=== PATIENT | female | born 1945 | race Caucasian/White ===

== ENCOUNTER → 2017-03-07 | Outpatient (CLI) | payer OTHER ==
[~2017-03-07] MED LIST: ANTIVERT25 MG PO; AZO STANDARD95 MG PO; DIAZEPAM 2MG TAB2 MG OR; ETODOLAC 400 M400 M1 PO; FLEXERIL PO; HEADACHE RELIE1 EAC4 PO; IBUPROFEN 200200 M1 PO; LEVOXYL50 MCG PO; LISINOPRIL20 MG PO; LISINOPRIL5 MG PO; MAGOX 400400 MG PO; MOTION RELIEF25 MG PO; OMEPRAZOLE 20 M20 M1 PO; OXYBUTYNIN 5 MG5 M1 PO; PREMARIN0.625 MG PO; TRAMADOL 50 MG50 MG PO; ZPAK PO
== END ==
LOC: RAD 09:08
DX: Z12.31 Encounter for screening mammogram for malignant neoplasm of breast (principal)

== ENCOUNTER → 2017-05-01 | Outpatient (CLI) | payer OTHER | LOC: SLEEPLAB 17:32 | DX: G47.33 Obstructive sleep apnea (adult) (pediatric) (principal) ==

== ENCOUNTER → 2017-06-26 | Outpatient (CLI) | payer OTHER | LOC: ULTRA 16:12 | DX: M79.604 Pain in right leg (principal); M79.89 Other specified soft tissue disorders ==

== ENCOUNTER 2017-10-07 09:36 | Emergency (ER) | payer OTHER ==
[~2017-10-07] VITALS: Ht 154.9 cm; Wt 77.1 kg
--- NOTE | ~2017-10-07 | EKG ---
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
[2017-10-07] MEDS ORDERED: ANTIVERT25 MG PO (10:50)
[2017-10-07 11:32] VITALS: BP 166/84
== END 2017-10-07 11:35 | disposition home or self-care (01) ==
LOC: ER 09:36
DX: R42 Dizziness and giddiness (principal); J32.9 Chronic sinusitis, unspecified; H61.21 Impacted cerumen, right ear; Z87.891 Personal history of nicotine dependence; Z88.5 Allergy status to narcotic agent; Z88.1 Allergy status to other antibiotic agents; Z88.0 Allergy status to penicillin

== ENCOUNTER → 2018-05-31 | Outpatient (CLI) | payer OTHER | LOC: RAD 07:24 | DX: M47.812 Spondylosis without myelopathy or radiculopathy, cervical region (principal) ==

== ENCOUNTER → 2018-08-22 | Outpatient (CLI) | payer OTHER ==
[~2018-08-22] MED LIST changes: +B-COMPLEX-VITA1 EACH PO; +GYNODIOL0.5 MG PO; +OFLOXACIN5 ML OPHTHALMIC; +PREDNISONE 20 M20 MG PO; +VITAMIN D1000 UNI2 PO
== END ==
LOC: RAD 15:05
DX: Z12.31 Encounter for screening mammogram for malignant neoplasm of breast (principal)

== ENCOUNTER → 2018-12-19 | Outpatient (CLI) | payer OTHER ==
[2018-12-19 15:32] LABS: ABSOLUTE NEUTROPHILS 4.8 thou/uL (1.4-8.2); BASOPHILS 1.2 % (0.0-2.0); EOSINOPHILS 2.6 % (0.0-3.0); HEMATOCRIT 41.2 % (37.0-47.0); HEMOGLOBIN 13.9 gm/dL (12.0-15.0); LYMPHOCYTES 34.2 % (24.0-44.0); MCH 30.7 pg (26.0-34.0); MCHC 33.8 g/dL (28.0-37.0); MCV 90.9 fL (80.0-100.0); PLATELET COUNT 318 thou/uL (150-400); RBC 4.53 mil/uL (4.20-5.00); RDW 14.2 % (10.5-14.5); WBC 8.8 thou/uL (4.0-11.0)
[2018-12-19 15:52] LABS: ALBUMIN 3.5 g/dL (3.4-5.0); CALCIUM 9.2 mg/dL (8.5-10.1); CREATININE 0.8 mg/dL (0.6-1.0); POTASSIUM 4.8 mmol/L (3.5-5.1); TOTAL BILIRUBIN 0.3 mg/dL (<0.1-1.0); TOTAL PROTEIN 6.8 g/dL (6.4-8.2)
== END ==
LOC: CAT 15:01 → LABMALL 15:01
PROVIDERS: Nurse Practitioner
DX: S00.03XA Contusion of scalp, initial encounter (principal); I67.82 Cerebral ischemia; J32.3 Chronic sphenoidal sinusitis; G31.9 Degenerative disease of nervous system, unspecified; R10.9 Unspecified abdominal pain; X58.XXXA Exposure to other specified factors, initial encounter; Y93.89 Activity, other specified; Y92.89 Other specified places as the place of occurrence of the external cause; Y99.8 Other external cause status

== ENCOUNTER → 2019-01-08 | Outpatient (CLI) | payer OTHER ==
[2019-01-08 08:53] LABS: CREATININE 0.9 mg/dL (0.6-1.0)
== END ==
LOC: CAT 08:18
PROVIDERS: Nurse Practitioner
DX: K44.9 Diaphragmatic hernia without obstruction or gangrene (principal); K76.9 Liver disease, unspecified; R19.5 Other fecal abnormalities; R92.2 Inconclusive mammogram; Z90.710 Acquired absence of both cervix and uterus

== ENCOUNTER → 2019-01-15 | Outpatient (CLI) | payer OTHER | LOC: ULTRA 01:05 | DX: K76.89 Other specified diseases of liver (principal); N63.20 Unspecified lump in the left breast, unspecified quadrant ==

== ENCOUNTER → 2019-06-11 | Outpatient (CLI) | payer OTHER ==
[~2019-06-11] VITALS: Ht 154.9 cm; Wt 79.4 kg
[~2019-06-11] MED LIST changes: +8 HOUR C500 MG PO; +CALCIUM500 MG PO; +PREMARIN0.45 MG PO
[2019-06-11 08:22] VITALS: BP 151/83
--- NOTE | 2019-06-11 08:40 | NUR ---
Pain Clinic Assessment: 1. History of Osteoarthritis: Not Applicable History of Rheumatoid Arthritis: Not Applicable 2. Height: 5 ft. 1 in. 154.9 cm. Weight: 175.0 lb. oz. 79.380 kg. Patient's BMI: 33.1 3. Vital Signs: BP: 151/83 Pulse: 68 Resp: 16 Temp: 02 Sat: 96 ECG Mon: 4. Pain Intensity: 7 5. Fall Risk: Dizziness: N Needs help standing or walking: N Fallen in the last 3 months: N Fall risk comments: 6. Patient on Blood Thinner: None 7. History of Hypertension: Y 8. Opioid Therapy greater than 6 weeks: N Opiate Contract Signed: 9. Risk Assessment Tool Provided: 0-LOW 10. Functional Assessment Tool: 11. Recreational Drug Use: Never Drug Type: Tobacco Use: Never Smoker Tobacco Type: Amount or Packs/day: How Many Years: Alcohol Use: No Frequency: Quant:
--- NOTE | 2019-06-24 09:14 | HPC ---
[facility] [place] [address] PAIN MANAGEMENT CONSULTATION Name: RYANMICHAELCATRINA Glenda Room #: REG ASHOK Wyatt#: [id number] Admission: 06/11/19 ������������������ Attend Phys: Samir Wallace DO Discharge: ������������������ Date of : 49 Report #: [id number] THIS REPORT FOR: //name// CC: Samir Braun Yaneth Kade WRIGHT DATE OF SERVICE: 06/11/2019 CHIEF COMPLAINT: Low back pain, bilateral lower extremity pain with paresthesias. HISTORY OF PRESENT ILLNESS: As you know, the patient is a 73-year-old female who was seen by [facility] per the request of her primary care team for evaluation for neck pain and upper extremity pain with paresthesias. She states from a pain standpoint, she is doing much better from her neck symptoms, but is now experiencing increasing back pain, bilateral lower extremity pain. She apparently sought evaluation with Podiatry who indicated that they felt her symptoms were not podiatric in origin, but are likely due to changes in the lumbar spine. She was subsequently referred to our clinic to discuss options for treatment for suspected lumbar radiculopathy. She comes to us with no imaging studies to further evaluate. She indicates today pain level around 7/10, exacerbated with sitting for any length of time, walking, sleeping, certain shoes. She describes the pain as periodic, burning, shooting, burning, electrical, numbness, and tingling. ALLERGIES: PENICILLIN, CODEINE, and HYDROCODONE. CURRENT MEDICATIONS: Ofloxacin, cyclobenzaprine, etodolac, cholecalciferol, vitamin B complex, estradiol, lisinopril, diazepam, omeprazole, and levothyroxine. SOCIAL HISTORY: The patient denies tobacco, alcohol, IV, or illicit drug use. 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 She is working, not receiving workmen's compensation, unaccompanied today. IMAGING: No new imaging available. PHYSICAL EXAMINATION: VITAL SIGNS: Blood pressure 151/83, pulse 68, respiratory rate 16 and unlabored. The patient is 96% on room air. Height 5 feet 1 inch tall, weight 175 pounds, BMI calculated 33.1. GENERAL: Well-developed, well-nourished, well-hydrated exogenously obese 73-year-old female appearing stated age, pain is rated around 7/10. HEENT: Normocephalic, atraumatic. Pupils equal, round, reactive to light. EXTREMITIES: Show no clubbing, no cyanosis, and no edema. [facility] [address] [place] [address] PAIN MANAGEMENT CONSULTATION Name: CATRINA BATISTA Room #: REG [facility].#: [id number] Admission: 06/11/19 ������������������ Attend Phys: Samir Wallace DO Discharge: ������������������ Date of : 49 Report #: [id number] MUSCULOSKELETAL: Lower extremity strength appears equal and symmetrical 5/5. She is intact to light touch from L1 through S2 dermatomes. Seated straight leg raising negative. Supine straight leg raising mildly positive at approximately 60 degree angle on the right, negative left. Ankle clonus negative. Babinski is negative. Muscle bulk and tone equal and symmetrical in lower extremities. The patient is able to toe walk, heel walk. Lumbar provocation testing is met with mild increase in overall pain. ASSESSMENT: 1. Possible lumbar radiculopathy. 2. Lumbosacral spondylosis with possible radicular symptoms. 3. Chronic low back pain. PLAN: 1. The patient has been referred back to our clinic for ongoing low back pain, bilateral lower extremity pain, believed not to be podiatric in origin. The patient apparently has been ruled out as a Podiatry problem by her prep manager at the recent visit of 05/28/2019. It was felt the patient's symptoms are related to lumbar radiculopathy. She comes to us today without any imaging studies to further evaluate the lumbar spine. I would recommend initially evaluated in the lumbar to determine if there is some pathology that would be amenable to treatment or whether or not surgical options may be necessary. We did consider the possibility of an EMG if the findings of the MRI are not specific. We will consider this option. The patient is amenable to undergo MRI of the lumbar spine as part of the initial evaluation. Once the findings are available, we can discuss the treatment options if it is believed her symptoms are radicular in origin. 2. We will send the patient for MRI lumbar spine without contrast. We have taken the liberty of writing for this imaging study, will make this available to the patient's treating physician. Once we have this MRI, we will review the findings. If there is noted pathology that might be amenable to an epidural injection, this would be a consideration at our followup visit. 3. The patient was provided samples of Lyrica 75 mg dose. She is to take 1 tab p.o. at bedtime approximately one hour prior to bedtime. This will provide baseline neuropathic pain control as we continue the workup for suspected lumbar radiculopathy. I have given the patient enough samples to titrate through the next couple of weeks as we continue the evaluation. 4. We will see the patient back in followup visit once the MRI has been completed, we will discuss options for treatment at that appointment including the possibility of undergoing an epidural injection. ��������������������������������������������� <ELECTRONICALLY SIGNED> ���������������������������������������� By: Samir Wallace DO ��������������������������������������������� 06/24/19 0914 1718 0942 Samir Wallace DO /nt
== END ==
LOC: PAIN 06:46
DX: M47.816 Spondylosis without myelopathy or radiculopathy, lumbar region (principal); G89.29 Other chronic pain; Z79.899 Other long term (current) drug therapy; Z88.8 Allergy status to other drugs, medicaments and biological substances; Z88.0 Allergy status to penicillin

== ENCOUNTER → 2019-06-12 | Outpatient (CLI) | payer OTHER | LOC: MRI 10:37 | DX: M43.16 Spondylolisthesis, lumbar region (principal); M51.16 Intervertebral disc disorders with radiculopathy, lumbar region; M47.814 Spondylosis without myelopathy or radiculopathy, thoracic region; M51.24 Other intervertebral disc displacement, thoracic region; M12.88 Other specific arthropathies, not elsewhere classified, other specified site; M51.25 Other intervertebral disc displacement, thoracolumbar region; M46.06 Spinal enthesopathy, lumbar region; M48.061 Spinal stenosis, lumbar region without neurogenic claudication ==

== ENCOUNTER → 2019-07-02 | Outpatient (CLI) | payer OTHER ==
[~2019-07-02] VITALS: Ht 154.9 cm; Wt 79.5 kg
[~2019-07-02] MED LIST changes: +DIAZEPAM2 MG PO; +HYOSCYAMINE0.125 MG PO
[2019-07-02 08:45] VITALS: BP 174/93
--- NOTE | 2019-07-02 09:01 | NUR ---
Pain Clinic Assessment: 1. History of Osteoarthritis: Not Applicable History of Rheumatoid Arthritis: Not Applicable 2. Height: 5 ft. 1 in. 154.9 cm. Weight: 175.2 lb. oz. 79.470 kg. Patient's BMI: 33.1 3. Vital Signs: BP: 174/93 Pulse: 65 Resp: 18 Temp: 02 Sat: 99 ECG Mon: 4. Pain Intensity: 6 5. Fall Risk: Dizziness: Y Needs help standing or walking: N Fallen in the last 3 months: N Fall risk comments: 6. Patient on Blood Thinner: None 7. History of Hypertension: Y 8. Opioid Therapy greater than 6 weeks: N Opiate Contract Signed: 9. Risk Assessment Tool Provided: 0-LOW 10. Functional Assessment Tool: 11. Recreational Drug Use: Never Drug Type: Tobacco Use: Never Smoker Tobacco Type: Amount or Packs/day: How Many Years: Alcohol Use: No Frequency: Quant:
--- NOTE | 2019-07-08 09:09 | HPC ---
[facility] [place] [address] PAIN MANAGEMENT CONSULTATION Name: CATRINA BATISTA Room #: REG ASHOK Wyatt#: [id number] Admission: 07/02/19 Attend Phys: Samir Wallace DO Discharge: Date of : 49 Report #: [id number] THIS REPORT FOR: //name// CC: Samir WRIGHT DATE OF SERVICE: 07/02/2019 CHIEF COMPLAINT: Low back pain, bilateral lower extremity pain with paresthesias. HISTORY OF PRESENT ILLNESS: As you know, patient is a 73-year-old female who returns today in followup visit to undergo lumbar epidural injection under fluoroscopic guidance. We had contacted the patient by phone after she underwent MRI of the lumbar spine to advise her of the findings therein. There was noted moderate thecal sac stenosis at L3-L4 with effacement of the L3 nerve roots corresponding to the patient's ongoing pain. She returns today in followup visit to undergo a lumbar epidural injection. She is placing pain score 6/10. She states her pain is periodic with baseline chronic burning, shooting and electrical like sensations. She states pain is exacerbated with walking, sleeping, sitting too long and certain pairs of shoes. She denies any injury or trauma. She returns today to undergo a lumbar epidural injection under fluoroscopic guidance to address lumbar radicular symptoms. ALLERGIES: PENICILLIN, CODEINE, HYDROCODONE. CURRENT MEDICATIONS: See chart. SOCIAL HISTORY: The patient denies tobacco, alcohol, IV or illicit drug use. She is working, not receiving workmen's compensation, unaccompanied today. IMAGING: No new imaging available. PHYSICAL EXAMINATION: VITAL SIGNS: Blood pressure 174/93, pulse 65, respiratory rate 18 and unlabored. The patient is 99% on room air. Height 5 feet 1 inch tall, weight 175.2 pounds, BMI calculated 33.1. GENERAL: Well-developed, well-nourished, well-hydrated 73-year-old female appearing stated age, pain is rated at 6/10. HEENT: Normocephalic, atraumatic. Pupils equal, round, reactive to light. EXTREMITIES: Show no clubbing, no cyanosis, and no edema. MUSCULOSKELETAL: Lower extremity strength equal and symmetrical 5/5, intact to light touch from L1 through S2 dermatomes. Seated straight leg raising negative. Supine straight leg raising remains mildly positive at about 60-65 degree angle on the right, negative left. Ankle clonus negative. [facility] is [facility] [address] [place] [address] PAIN MANAGEMENT CONSULTATION Name: CATRINA BATISTA Room #: REG [facility]#: [id number] Admission: 07/02/19 Attend Phys: Samir Wallace DO Discharge: Date of : 49 Report #: [id number]. ASSESSMENT: 1. Symptomatic lumbar radiculopathy. 2. Spinal stenosis of the lumbar spine. 3. Displacement of lumbar intervertebral disk with radiculopathy. 4. Lumbosacral spondylosis with radiculopathy. 5. Lumbar degeneration. 6. Chronic intractable pain. PLAN: 1. The patient returns today in followup visit to undergo lumbar epidural injection under fluoroscopic guidance. As indicated in the history of present illness, patient and I had a conversation over the phone about the findings of the MRI from her lumbar region as she was delayed in return due to third constitution party payer restrictions. The patient is prepared to undergo the lumbar epidural injection today. She is advised of the risks and benefits. These risks include but are not necessarily limited to bleeding, bruising, infection, worsening pain, no relief of pain, also risk of temporary or permanent muscle weakness, temporary or permanent nerve damage, possible paralysis and . The patient states understood and wished to proceed. 2. No medication changes made at today's visit. The patient will continue current medical therapy as prior prescribed. 3. We will see the patient back in followup visit on an as needed basis for next in the series of lumbar epidural injections. PROCEDURE NOTE DESCRIPTION OF PROCEDURE: L3-L4 lumbar epidural injection under fluoroscopic guidance. After obtaining written consent, the patient was taken back to fluoroscopy suite, placed in prone position with pillow under abdomen to decrease lumbar lordosis. Skin overlying lumbosacral area then prepped and draped in aseptic fashion. The L3-L4 vertebral interspace identified by AP fluoroscopy. Skin and subcutaneous tissue overlying target site of injection anesthetized with 3 mL of 1% lidocaine. A 20-gauge 3-1/2 inch Tuohy needle advanced under fluoroscopic guidance towards the epidural space using a parasagittal approach. Epidural space identified using loss of resistance to air technique. After negative aspiration for heme or cerebrospinal fluid, 1 mL of Omnipaque injected. Lumbar epidurogram confirmed using both AP and lateral fluoroscopy. After negative aspiration for heme or cerebrospinal fluid, 5 mL of a solution containing 2 mL 40 mg per mL, 80 mg total triamcinolone, 3 mL lidocaine 1% injected slowly. Needle retracted penitentiary, flushed with 1 mL of 1% lidocaine and removed. Sterile bandage placed [address] [address] PAIN MANAGEMENT CONSULTATION Name: CATRINA BATISTA Room #: RUBINA EllisMiguel#: [id number] Admission: 07/02/19 Attend Phys: Samir Wallace DO Discharge: Date of : 49 Report #: [id number] over injection site. No new motor deficits present in lower extremity following procedure. The patient tolerated procedure well, carefully escorted to recovery room in stable condition. No apparent complications. After meeting discharge criteria, patient discharged home. <ELECTRONICALLY SIGNED> By: Samir Wallace DO 07/08/19 0909 1020 0157 Samir Wallace DO /nt
== END | disposition home or self-care (01) ==
LOC: PAIN 06-18 06:45
DX: M51.16 Intervertebral disc disorders with radiculopathy, lumbar region (principal); M47.27 Other spondylosis with radiculopathy, lumbosacral region; M48.061 Spinal stenosis, lumbar region without neurogenic claudication; G89.29 Other chronic pain; Z88.0 Allergy status to penicillin; Z88.8 Allergy status to other drugs, medicaments and biological substances; Z79.899 Other long term (current) drug therapy

== ENCOUNTER → 2019-08-28 | Outpatient (CLI) | payer OTHER | LOC: RAD 10:34 | DX: Z12.31 Encounter for screening mammogram for malignant neoplasm of breast (principal) ==

== ENCOUNTER 2020-03-29 09:08 | Emergency (ER) | payer OTHER ==
[~2020-03-29] VITALS: Ht 152.4 cm; Wt 77.1 kg
[2020-03-29 09:10] VITALS: BP 135/84
[2020-03-29] MEDS ORDERED: ERYTHROMYCIN E3.5 G3 OPHTHALMIC (09:55)
[2020-03-29] MEDS ORDERED: IBUPROFEN 800800 MG PO (09:55)
== END 2020-03-29 10:16 | disposition home or self-care (01) ==
LOC: ER 09:08
DX: S05.02XA Injury of conjunctiva and corneal abrasion without foreign body, left eye, initial encounter (principal); Z86.69 Personal history of other diseases of the nervous system and sense organs; Z90.49 Acquired absence of other specified parts of digestive tract; Z98.890 Other specified postprocedural states; Z79.899 Other long term (current) drug therapy; Z88.5 Allergy status to narcotic agent; Z88.0 Allergy status to penicillin; Z87.891 Personal history of nicotine dependence; W22.09XA Striking against other stationary object, initial encounter; Y93.E9 Activity, other interior property and clothing maintenance; Y92.098 Other place in other non-institutional residence as the place of occurrence of the external cause; Y99.8 Other external cause status

== ENCOUNTER → 2020-07-28 | Outpatient (CLI) | payer OTHER ==
[~2020-07-28] MED LIST changes: +ALUMINUM POTAS PO; +DULERA 200 MCG/13 GM INH; +ERYTHROMYCIN E3.5 G3 OPHTHALMIC; +IBUPROFEN 800800 MG PO; +LODINE400 M1 PO; +OMEPRAZOLE40 MG PO
== END ==
LOC: SJCVCIMAG 13:22
PROVIDERS: ATTEND Internal Medicine Cardiovascular Disease
DX: I87.2 Venous insufficiency (chronic) (peripheral) (principal); Z87.891 Personal history of nicotine dependence

== ENCOUNTER → 2020-08-04 | Outpatient (CLI) | payer OTHER ==
[~2020-08-04] VITALS: Ht 154.9 cm; Wt 78.0 kg
[2020-08-04 12:17] VITALS: BP 173/67; BP 198/88
[2020-08-04 12:28] LABS: HEMATOCRIT 42.4 % (37.0-47.0); MCH 30.4 pg (26.0-34.0); MCHC 32.9 g/dL (28.0-37.0); MCV 92.2 fL (80.0-100.0); RBC 4.6 mil/uL (4.20-5.00); RDW 13.8 % (10.5-14.5); WBC 6.6 thou/uL (4.0-11.0)
[2020-08-04 12:39] LABS: CALCIUM 8.4 mg/dL (8.5-10.1); CREATININE 0.6 mg/dL (0.6-1.0); POTASSIUM 4.8 mmol/L (3.5-5.1)
== END | disposition home or self-care (01) ==
LOC: CATH 06:33
PROVIDERS: ATTEND Nuclear Medicine Nuclear Cardiology
DX: I87.1 Compression of vein (principal); I87.323 Chronic venous hypertension (idiopathic) with inflammation of bilateral lower extremity; R22.43 Localized swelling, mass and lump, lower limb, bilateral; I10 Essential (primary) hypertension; J45.909 Unspecified asthma, uncomplicated; G47.33 Obstructive sleep apnea (adult) (pediatric); K21.9 Gastro-esophageal reflux disease without esophagitis; Z98.890 Other specified postprocedural states; Z79.899 Other long term (current) drug therapy; Z90.49 Acquired absence of other specified parts of digestive tract; Z98.42 Cataract extraction status, left eye; Z98.41 Cataract extraction status, right eye; Z87.891 Personal history of nicotine dependence; Z88.0 Allergy status to penicillin; Z88.8 Allergy status to other drugs, medicaments and biological substances

== ENCOUNTER → 2020-08-25 | Outpatient (CLI) | payer OTHER ==
[~2020-08-25] VITALS: Ht 154.9 cm; Wt 78.0 kg
[2020-08-25 12:20] VITALS: BP 143/59
== END | disposition home or self-care (01) ==
LOC: CATH 08:14
PROVIDERS: ATTEND Nuclear Medicine Nuclear Cardiology
DX: I87.322 Chronic venous hypertension (idiopathic) with inflammation of left lower extremity (principal); R22.42 Localized swelling, mass and lump, left lower limb; M79.605 Pain in left leg; I10 Essential (primary) hypertension; I73.9 Peripheral vascular disease, unspecified; K21.9 Gastro-esophageal reflux disease without esophagitis; J45.909 Unspecified asthma, uncomplicated; Z98.890 Other specified postprocedural states; Z79.899 Other long term (current) drug therapy; Z98.41 Cataract extraction status, right eye; Z96.651 Presence of right artificial knee joint; Z98.42 Cataract extraction status, left eye; Z90.49 Acquired absence of other specified parts of digestive tract; Z87.891 Personal history of nicotine dependence; Z88.0 Allergy status to penicillin; Z88.8 Allergy status to other drugs, medicaments and biological substances

== ENCOUNTER → 2020-08-31 | Outpatient (CLI) | payer OTHER | LOC: RAD 14:32 | PROVIDERS: ATTEND Nurse Practitioner | DX: Z12.31 Encounter for screening mammogram for malignant neoplasm of breast (principal) ==

== ENCOUNTER → 2020-09-07 | Outpatient (CLI) | payer OTHER | LOC: ULTRA 07:44 | PROVIDERS: ATTEND Nurse Practitioner | DX: N60.01 Solitary cyst of right breast (principal); N60.02 Solitary cyst of left breast; R92.8 Other abnormal and inconclusive findings on diagnostic imaging of breast ==

== ENCOUNTER 2020-11-15 07:31 | Emergency (ER) | payer OTHER ==
[~2020-11-15] VITALS: Ht 152.4 cm; Wt 77.1 kg
--- NOTE | 2020-11-15 10:12 | EKG ---
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 : 1945 Requested By: Rogelio Benavidez Order Number: [id number] MD: Lee Arriaga Measurements Intervals [place] Rate: 75 P: -11 AR: 221 QRS: -17 QRSD: 131 T: -6 QT: 404 QTc: 452 Interpretive Statements Sinus rhythm Prolonged AR interval Right bundle branch block Compared to ECG 10/07/2017 10:09:00 Right bundle-branch block now present Electronically Signed On 11-15-2020 10:12:29 CATERING AND EVENTS MANAGER by Lee Arriaga [email or web address] <ELECTRONICALLY SIGNED> By: Lee Arriaga MD, [facility] 11/15/20 1012 0948 09 Lee Arriaga MD, FACC /EPI
[2020-11-15] MEDS ORDERED: ZPAK PO (11:08)
[2020-11-15] MEDS ORDERED: PREDNISONE 20 M20 M1 PO (11:08)
[2020-11-15 11:28] VITALS: BP 176/80
== END 2020-11-15 11:29 | disposition home or self-care (01) ==
LOC: ER 07:31
DX: J20.9 Acute bronchitis, unspecified (principal); J45.909 Unspecified asthma, uncomplicated; K21.9 Gastro-esophageal reflux disease without esophagitis; I10 Essential (primary) hypertension; Z79.899 Other long term (current) drug therapy; Z87.891 Personal history of nicotine dependence; Z88.0 Allergy status to penicillin; Z88.5 Allergy status to narcotic agent

== ENCOUNTER → 2021-02-23 | Outpatient (CLI) | payer OTHER ==
[~2021-02-23] MED LIST changes: +PREDNISONE 20 M20 M1 PO
== END ==
LOC: BC 14:01
PROVIDERS: ATTEND Nurse Practitioner
DX: R92.1 Mammographic calcification found on diagnostic imaging of breast (principal); N63.20 Unspecified lump in the left breast, unspecified quadrant; N63.10 Unspecified lump in the right breast, unspecified quadrant; R92.8 Other abnormal and inconclusive findings on diagnostic imaging of breast

== ENCOUNTER → 2021-05-04 | Outpatient (CLI) | payer OTHER | LOC: MRI 08:20 | PROVIDERS: ATTEND Nurse Practitioner | DX: M51.16 Intervertebral disc disorders with radiculopathy, lumbar region (principal); M43.26 Fusion of spine, lumbar region; M47.26 Other spondylosis with radiculopathy, lumbar region; M48.061 Spinal stenosis, lumbar region without neurogenic claudication; M43.16 Spondylolisthesis, lumbar region ==

== ENCOUNTER → 2021-05-10 | Outpatient (CLI) | payer OTHER ==
[~2021-05-10] VITALS: Ht 154.9 cm; Wt 78.7 kg
[~2021-05-10] MED LIST changes: +VENLAFAXINE H37.5 MG PO
--- NOTE | ~2021-05-10 | HPC ---
[facility] [place] [address] PAIN MANAGEMENT CONSULTATION Name: CATRINA BATISTA Room #: REG ASHOK Edmundo#: [id number] Admission: 05/10/21 Attend Phys: Samir Wallace DO Discharge: Date of : 49 Report #: [id number] THIS REPORT FOR: cc: Yaneth Braun DNP, Mary E. DNP Johnson, James E. DO ~ DOC #: [id number] cc: ADRIANA Marie DO DATE OF SERVICE: 05/10/2021 REFERRING: Yaneth Braun, nurse practitioner CHIEF COMPLAINT: Low back pain and left lower extremity pain with paresthesias. HISTORY OF PRESENT ILLNESS: As you know, the patient is a 75-year-old female who has been referred back to our service with increasing back pain and left lower extremity pain with paresthesias. We last saw the patient in our clinic on 07/02/2019 where she underwent a lumbar epidural injection under fluoroscopic guidance. This apparently provided excellent benefit until her symptoms reoccurred. She denies injury or trauma. She states pain begins in low back, radiates down the left leg to the foot. She describes the pain as chronic in nature, sharp, shooting, numbness, tingling, intermittent exacerbations. She places current pain score 6/10. She states walking, climbing stairs and lying down at night exacerbates symptoms. Massage therapy, pressure and prednisone treatment has improved her pain slightly. The patient recently underwent an MRI of the lumbar spine, which shows significant changes at the L3-4 level, just above the patient's fusion, and she was referred to our clinic to discuss interventional treatment. ALLERGIES: PENICILLIN, CODEINE AND HYDROCODONE. CURRENT MEDICATIONS: Venlafaxine 37.5 mg once a day, Dulera inhaled twice a day, omeprazole 40 mg per day, diazepam 2 mg p.o. at bedtime, estradiol 0.5 mg once a day, lisinopril 20 mg per day, levothyroxine 50 mcg per day. SOCIAL HISTORY: The patient continues to smoke, reports 13-wvxg-[id number] of 1 pack a day smoking. Denies IV or illicit drug use. Denies any chronic alcohol use. She is working, not receiving Workmen's Compensation, unaccompanied today. IMAGING: MRI of the lumbar spine obtained 05/04/2021 shows mild degenerative changes within the thoracic spine. No central canal or neural foraminal stenosis. L1-2 shows mild facet arthropathy. No central canal or neural foraminal stenosis. L2-3, mild facet arthropathy. No central canal or neural foraminal stenosis. L3-4 shows grade 1 anterolisthesis of L3 with moderate degenerative changes. Mild facet arthropathy bilaterally. Moderate bilateral [address] [address] PAIN MANAGEMENT CONSULTATION Name: CATRINA BATISTA Room #: REG CLI Edmundo#: [id number] Admission: 05/10/21 Attend Phys: Samir Wallace DO Discharge: Date of : 49 Report #: [id number] broad-based disk bulge with [id number]-bt-[id number] central canal stenosis. Canal now measures 7 mm, severe narrowing of the lateral recess bilaterally, moderate bilateral neural foraminal narrowing. L4-5 shows previous spinal fusion and L4 laminectomy. No significant disk bulge or central canal stenosis. There is, however, moderate facet arthropathy and rdzfiklz-ox-qjrqbz spinal stenosis, more superiorly behind the L4 vertebral body. L5-S1 shows moderate degenerative changes, moderate facet arthropathy bilaterally. Mild disk bulge. No central canal or neural foraminal stenosis. PHYSICAL EXAMINATION: VITAL SIGNS: Blood pressure 168/82, pulse 58, respiratory rate 18 and unlabored. The patient 100% on room air. Height 5 feet 1 inch tall, weight 173.4 pounds, BMI calculated 32.8. GENERAL: Well-developed, well-nourished, well-hydrated 75-year-old female, appearing stated age. Pain is rated today at 6/10. HEENT: Normocephalic, atraumatic. Pupils equal, round and responsive to light. Extraocular muscles are intact. Sclerae nonicteric without injection. Cranial nerves 2-12 grossly intact. Speech fluent. The patient deemed a good historian. EXTREMITIES: Show no clubbing, no cyanosis and no edema. MUSCULOSKELETAL: Lower extremity strength is symmetrical, 5/5. Slight giveaway strength noted with hip flexion on the left when compared to the right due to pain generation. Muscle bulk and tone is equal and symmetrical in lower extremities. Deep tendon reflexes are symmetrical at patella and Achilles. Ankle clonus negative. Babinski is negative. Seated straight leg raising positive on the left. Supine straight leg raising positive on left. IRA test is negative. Modified Gaenslen's positive for axial back pain. Ankle clonus negative. Babinski is negative. ASSESSMENT: 1. Symptomatic lumbar radiculopathy. 2. Severe lateral recess stenosis of the lumbar spine. 3. Severe central canal stenosis of the lumbar spine. 4. Lumbosacral spondylosis with radiculopathy. 5. Neural foraminal stenosis of lumbar spine. 6. Displacement of lumbar intervertebral disk with radiculopathy. 7. Facet arthropathy of lumbar spine. 8. Chronic intractable pain. PLAN: 1. Based on today's physical exam, history the patient has provided, the description the patient uses in regards to pain and the distribution of symptoms she is experiencing, symptoms upon the likely source of the patient's pain is due to the findings at the L3-4 level. We have discussed with the patient the changes in her MRI based on the data obtained on 05/04/2021 when compared to the imaging of 06/12/2019. There has been a definitive change at the level above [facility] [address] [place] [address] PAIN MANAGEMENT CONSULTATION Name: CATRINA BATISTA Room #: REG [facility].#: [id number] Admission: 05/10/21 Attend Phys: Samir Wallace DO Discharge: Date of : 49 Report #: [id number] the fusion. There continues to be fairly stable findings at the L4-5 level and L5-S1 level. We discussed with the patient the findings today and then correlated those symptoms to her current pain. After reviewing the imaging study and her physical exam findings, we then discussed treatment options. Following was discussed with the patient today. We discussed physical therapy, stretching exercises and core strengthening as a treatment approach. We discussed medication management with suggestions of treatment to add neuropathic medication such as amitriptyline, nortriptyline, Cymbalta, Lyrica or gabapentin. We discussed lumbar epidural injections under fluoroscopic guidance and ultimately surgical decompression at the L3-4 level. After reviewing the risks and benefits of all the proposed treatment options, the patient chose to begin with a lumbar epidural injection under fluoroscopic guidance as she has just completed a Workstreamerrol Dosepak with minimal benefit. 2. The patient was advised due to third republican payer restrictions, authorization would have to be obtained before the patient could undergo a lumbar epidural injection. Authorization could take anywhere from 24-72 hours, we will begin that process immediately. Once we have this authorization, we will have the patient return to undergo a lumbar epidural injection under fluoroscopic guidance to address lumbar radicular symptoms. 3. No medication changes were made at today's visit. We recommend the patient continue current medication therapy. We are hopeful we can have this approval to have the patient undergo the epidural injection quickly and thus we do not need to initiate medication management at this visit. 4. We will see the patient back for a followup visit once we have authorization for her to undergo a lumbar epidural injection under fluoroscopic guidance at the L3-4 level. We wish to thank nurse practitioner, Yaneth Braun, for the opportunity to see this patient in consultation. We will keep you apprised of her response to treatment as we address lumbar radicular symptoms. Again, we wish to thank you for the opportunity to see this patient in consultation. DO AFIA Lopez/MARLA/DELLA By: 0803 13 Samir Wallace DO /nt
[2021-05-10 08:09] VITALS: BP 168/82
--- NOTE | 2021-05-10 08:28 | NUR ---
Pain Clinic Assessment: 1. History of Osteoarthritis: Not Applicable History of Rheumatoid Arthritis: Not Applicable 2. Height: 5 ft. 1 in. 154.9 cm. Weight: 173.4 lb. oz. 78.654 kg. Patient's BMI: 32.8 3. Vital Signs: BP: 168/82 Pulse: 58 Resp: 18 Temp: 02 Sat: 100 ECG Mon: 4. Pain Intensity: 6 5. Fall Risk: Dizziness: N Needs help standing or walking: N Fallen in the last 3 months: N Fall risk comments: 6. Patient on Blood Thinner: None 7. History of Hypertension: Y 8. Opioid Therapy greater than 6 weeks: N Opiate Contract Signed: 9. Risk Assessment Tool Provided: 0-LOW 10. Functional Assessment Tool: 11. Recreational Drug Use: Never Drug Type: Tobacco Use: Former Smoker Tobacco Type: Cigarettes Amount or Packs/day: 1 How Many Years: 20 Alcohol Use: No Frequency: Quant:
== END ==
LOC: PAIN
PROVIDERS: ATTEND Anesthesiology Pain Medicine
DX: M47.26 Other spondylosis with radiculopathy, lumbar region (principal); M48.061 Spinal stenosis, lumbar region without neurogenic claudication; M47.27 Other spondylosis with radiculopathy, lumbosacral region; M51.16 Intervertebral disc disorders with radiculopathy, lumbar region; G89.4 Chronic pain syndrome; Z79.891 Long term (current) use of opiate analgesic; Z79.899 Other long term (current) drug therapy; Z88.0 Allergy status to penicillin; Z88.5 Allergy status to narcotic agent

== ENCOUNTER → 2021-05-18 | Outpatient (CLI) | payer OTHER ==
[~2021-05-18] VITALS: Ht 154.9 cm; Wt 75.6 kg
--- NOTE | ~2021-05-18 | HPC ---
[address] [address] PAIN MANAGEMENT CONSULTATION Name: CATRINA BATISTA Room #: REG ASHOK Wyatt#: [id number] Admission: 05/18/21 Attend Phys: Samir Wallace DO Discharge: Date of : 49 Report #: [id number] THIS REPORT FOR: cc: Yaneth Braun DNP, Mary E. DNP Johnson, James E. DO ~ DOC #: [id number] cc: ADRIANA Marie DO DATE OF SERVICE: 05/18/2021 CHIEF COMPLAINT: Low back pain, bilateral lower extremity pain with paresthesias, left greater than right. HISTORY OF PRESENT ILLNESS: As you know, the patient is a 75-year-old female referred to our service for increasing back pain, mainly left lower extremity pain with paresthesias, intermittent right lower extremity pain with paresthesias. She underwent recent imaging which shows progressively worsening central canal stenosis at the L3-L4 level and continued severe central canal stenosis at the L4-L5 level despite instrumented decompression. We are seeing minimal changes at the L5-S1 level. She was referred back to our clinic to undergo interventional treatments to address ongoing symptoms. We saw the patient in consultation on 05/10/2021. She was made today's appointment 05/18/2021 to undergo lumbar epidural injection as we had to have authorization for the patient to undergo the procedure. We have received those authorizations yesterday and she was made an appointment today. She has had no changes in medical history since her last visit. ALLERGIES: PENICILLIN, CODEINE, HYDROCODONE. CURRENT MEDICATIONS: Venlafaxine, Dulera, omeprazole, diazepam, estradiol, lisinopril, levothyroxine. SOCIAL HISTORY: The patient continues to smoke, reports a 53-yiox-vfdh history of one day a pack smoking. Denies IV or illicit drug use. Denies any chronic alcohol use. She is working, not receiving workmen's compensation, unaccompanied today. IMAGING: No new imaging since 05/04/2021. PHYSICAL EXAMINATION: GENERAL: Well-developed, well-nourished, well-hydrated 75-year-old female appearing stated age, pain is rated at a level of 6/10. HEENT: Normocephalic, atraumatic. Pupils are round and responsive. She is deemed a good historian. She is wearing a mask in compliance with COVID-19 regulations. [address] [address] PAIN MANAGEMENT CONSULTATION Name: CATRINA BATISTA Room #: REG CLI [facility]#: [id number] Admission: 05/18/21 Attend Phys: Samir Wallace DO Discharge: Date of : 49 Report #: [id number] EXTREMITIES: Show no clubbing, no cyanosis and no edema. MUSCULOSKELETAL: Lower extremity strength is symmetrical 5/5. Slight giveaway strength noted again today with hip flexion on the left. Pain is generated with this maneuver. Seated straight leg raising positive on the left. Supine straight leg raising positive on the left. Gait is antalgic. ASSESSMENT: 1. Symptomatic lumbar radiculopathy. 2. 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 3. Severe central canal stenosis of lumbar spine. 4. Lumbosacral spondylosis with radiculopathy. 5. Neural foraminal stenosis of lumbar spine. 6. Displacement of lumbar intervertebral disk with radiculopathy. 7. Facet arthropathy, lumbar spine. 8. Failed lumbar spine surgery. 9. Chronic intractable pain. PLAN: 1. The patient returns today in followup visit having received authorization to undergo lumbar epidural injection under fluoroscopic guidance. She has been advised of the risks and the benefits of this procedure. These risks include but are not necessarily limited to bleeding, bruising, infection, worsening pain, no relief of pain, also risk of temporary or permanent, muscle weakness, temporary or permanent nerve damage, possible paralysis, and . The patient states understood and wished to proceed. 2. No medication changes made at today's visit. The patient will continue current medical therapy as prior prescribed. 3. We plan to see the patient back in followup visit on an as needed basis for the next in the series of lumbar epidural injections. PROCEDURE NOTE DESCRIPTION OF PROCEDURE: Lumbar epidural steroid injection under fluoroscopic guidance. After obtaining written consent, the patient was taken back to fluoroscopy suite, placed in prone position with pillow under abdomen to decrease lumbar lordosis. Skin overlying lumbosacral area prepped and draped in aseptic fashion. Lumbar intervertebral spaces were identified by AP fluoroscopy. Skin and subcutaneous tissue overlying target site injection anesthetized with 3 mL 1% lidocaine. A 20 gauge 3-1/2 inch Tuohy needle advanced under fluoroscopic guidance towards the epidural space using a parasagittal approach. Epidural space identified using loss of resistance to air technique. After negative aspiration for heme or cerebrospinal fluid, 1 mL of Omnipaque injected. Lumbar epidurogram was [facility] [address] [place] [address] PAIN MANAGEMENT CONSULTATION Name: CATRINA BATISTA [id number] Admission: 05/18/21 Attend Phys: Samir Wallace DO Discharge: Date of : 47 Report #: [id number] confirmed using both AP and lateral fluoroscopy. After negative aspiration for heme or cerebrospinal fluid, 5 mL solution containing 2 mL 40 mg per mL 80 mg total triamcinolone along with 3 mL of lidocaine, 1% injected slowly. Needle retracted [facility], flushed with 1 mL of 1% lidocaine, then removed. Sterile bandage placed over injection site. No new motor deficits present in the lower extremities, following procedure. The patient tolerated the procedure well, carefully escorted to recovery room in stable condition. No apparent complications. After meeting discharge criteria, the patient discharged home. Samir Wallace DO JEJ/DOV By: [id number] Samir Wallace DO /nt
[2021-05-18 08:14] VITALS: BP 155/88
--- NOTE | 2021-05-18 08:24 | NUR ---
Pain Clinic Assessment: 1. History of Osteoarthritis: Not Applicable History of Rheumatoid Arthritis: Not Applicable 2. Height: 5 ft. 1 in. 154.9 cm. Weight: 166.6 lb. oz. 75.569 kg. Patient's BMI: 31.5 3. Vital Signs: BP: 155/88 Pulse: 63 Resp: 16 Temp: 02 Sat: 99 ECG Mon: 4. Pain Intensity: 6 TO 7 5. Fall Risk: Dizziness: N Needs help standing or walking: N Fallen in the last 3 months: N Fall risk comments: 6. Patient on Blood Thinner: None 7. History of Hypertension: Y 8. Opioid Therapy greater than 6 weeks: N Opiate Contract Signed: 9. Risk Assessment Tool Provided: 0-LOW 10. Functional Assessment Tool: 11. Recreational Drug Use: Never Drug Type: Tobacco Use: Former Smoker Tobacco Type: Amount or Packs/day: How Many Years: Alcohol Use: No Frequency: Quant:
== END | disposition home or self-care (01) ==
LOC: PAIN 06:54
PROVIDERS: ATTEND Anesthesiology Pain Medicine
DX: M51.16 Intervertebral disc disorders with radiculopathy, lumbar region (principal); M48.061 Spinal stenosis, lumbar region without neurogenic claudication; M47.27 Other spondylosis with radiculopathy, lumbosacral region; M47.26 Other spondylosis with radiculopathy, lumbar region; M96.1 Postlaminectomy syndrome, not elsewhere classified; G89.29 Other chronic pain; Z98.890 Other specified postprocedural states; Z79.899 Other long term (current) drug therapy; Z87.891 Personal history of nicotine dependence

== ENCOUNTER → 2021-05-20 | Outpatient (CLI) | payer OTHER | LOC: SJCVCIMAG 07:44 | PROVIDERS: ATTEND Nuclear Medicine Nuclear Cardiology | DX: I70.203 Unspecified atherosclerosis of native arteries of extremities, bilateral legs (principal); M79.662 Pain in left lower leg ==

== ENCOUNTER → 2021-06-02 | Outpatient (CLI) | payer OTHER | LOC: SJCVCIMAG 07:58 | PROVIDERS: ATTEND Nuclear Medicine Nuclear Cardiology | DX: I70.203 Unspecified atherosclerosis of native arteries of extremities, bilateral legs (principal); M79.661 Pain in right lower leg; M79.662 Pain in left lower leg ==

== ENCOUNTER → 2021-06-15 | Outpatient (CLI) | payer OTHER ==
[~2021-06-15] VITALS: Ht 154.9 cm; Wt 76.7 kg
[~2021-06-15] MED LIST changes: +NEURONTIN 300M300 M2 PO
[2021-06-15 08:21] VITALS: BP 155/92
--- NOTE | 2021-06-15 08:26 | NUR ---
Pain Clinic Assessment: 1. History of Osteoarthritis: Not Applicable History of Rheumatoid Arthritis: Not Applicable 2. Height: 5 ft. 1 in. 154.9 cm. Weight: 169.2 lb. oz. 76.749 kg. Patient's BMI: 32.0 3. Vital Signs: BP: 155/92 Pulse: 109 Resp: 16 Temp: 02 Sat: 97 ECG Mon: 4. Pain Intensity: 6 5. Fall Risk: Dizziness: N Needs help standing or walking: N Fallen in the last 3 months: N Fall risk comments: 6. Patient on Blood Thinner: None 7. History of Hypertension: Y 8. Opioid Therapy greater than 6 weeks: N Opiate Contract Signed: 9. Risk Assessment Tool Provided: 0-LOW 10. Functional Assessment Tool: 11. Recreational Drug Use: Never Drug Type: Tobacco Use: Former Smoker Tobacco Type: Amount or Packs/day: How Many Years: Alcohol Use: No Frequency: Quant:
--- NOTE | 2021-06-21 08:01 | HPC ---
[facility] [place] [address] [place] [address] PAIN MANAGEMENT CONSULTATION Name: CATRINA BATISTA Room #: REG ASHOK Edmundo#: [id number] Admission: 06/15/21 Attend Phys: Samir Wallace DO Discharge: Date of : 47 Report #: [id number] THIS REPORT FOR: cc: Yaneth Braun DNP, Mary E. DNP Johnson, James E. DO ~ cc: ADRIANA Marie DATE OF SERVICE: 06/15/2021 CHIEF COMPLAINT: Low back pain, bilateral lower extremity pain, left greater than right. HISTORY OF PRESENT ILLNESS: As you know, the patient is a pleasant 75-year-old female referred to our service for increasing back pain, left lower extremity pain with intermittent right lower extremity pain with paresthesias. She was seen in consultation per the request of Yaneth Braun on 05/10/2021 and diagnosed with progressively worsening severe central canal and lateral recess stenosis. She was provided an appointment to return for an epidural injection on 05/18/2021. She reports today complete resolution of her back pain, but continues to experience lower extremity symptoms, mainly on the left side that she places pain at 6/10. She describes pain as shooting, sharp, numbness, tingling and intermittent. She describes the pain as exacerbated with walking, going up stairs improves with massage and pressure and previous epidural injection. As indicated, the patient reported complete resolution of her axial back pain and buttock symptoms, but continues to experience left lower extremity pain. She returns for the next in the series of lumbar epidural injections. ALLERGIES: PENICILLIN, CODEINE, HYDROCODONE. CURRENT MEDICATIONS: See chart. SOCIAL HISTORY: The patient continues to smoke approximately 1-pack of tobacco per day. Denies IV or illicit drug use. Denies any chronic alcohol use. She is working, not receiving workmen's compensation, unaccompanied today. IMAGING: No new imaging available. PHYSICAL EXAMINATION: VITAL SIGNS: Blood pressure 155/92, pulse 109, respiratory rate 16 and unlabored. The patient 97% on room air. Height 5 feet 1 inch tall, weight 169.2 pounds, BMI calculated 32.0. GENERAL: Well-developed, well-nourished, well-hydrated 75-year-old female appearing stated age, pain is rated today 6/10. HEENT: Normocephalic, atraumatic. Pupils equal, round and responsive. She is wearing a mask in compliance with COVID-19 regulations. EXTREMITIES: Show no clubbing, no cyanosis, no edema. [address] [address] PAIN MANAGEMENT CONSULTATION Name: CATRINA BATISTA Room #: REG [facility].#: [id number] Admission: 06/15/21 Attend Phys: Samir Wallace DO Discharge: Date of : 47 Report #: [id number] MUSCULOSKELETAL: Lower extremity strength is once again noted to be symmetrical 5/5. Giveaway strength noted with hip flexion, knee extension on the left due to pain generation. Seated straight leg raising positive on the left. Supine straight leg raising positive on the left. Gait is antalgic favoring left lower extremity over right. Ankle clonus negative. Babinski is negative. ASSESSMENT: 1. Symptomatic lumbar radiculopathy. 2. 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 3. Severe central canal stenosis of lumbar spine. 4. Severe neural foraminal stenosis of lumbar spine. 5. Lumbosacral spondylosis with radiculopathy. 6. Displacement of lumbar intervertebral disk with radiculopathy. 7. Facet arthropathy of lumbar spine. 8. Failed lumbar spine surgery. 9. Chronic intractable pain. PLAN: 1. The patient returns today in followup visit requesting to undergo lumbar epidural injection under fluoroscopic guidance. She reports 100% resolution of her low back pain, but continues to experience left lower extremity symptoms for which she places pain score at 6/10. She returns today in followup visit to undergo the epidural injection in hopes of improving pain. The patient and I discussed the risks and the benefits of the procedure. She states she understood and wished to proceed. 2. No medication changes made at today's visit. The patient will continue current medical therapy as prior prescribed. 3. We plan to see the patient back in followup visit to address lumbar radicular symptoms. We will see her back on an as needed basis. PROCEDURE NOTE DESCRIPTION OF PROCEDURE: L5-S1 left paramedian epidural steroid injection under fluoroscopic guidance. This is the second procedure of the second series that the patient is undergoing. After obtaining written consent, the patient was taken back to the fluoroscopy suite, placed in a prone position with pillow under the abdomen to decrease lumbar lordosis. The skin overlying the lumbosacral area was then prepped and draped in aseptic fashion. The L5-S1 vertebral interspace was then identified by AP fluoroscopy. The skin and subcutaneous tissue overlying the target site of injection was anesthetized with 3 mL 1% lidocaine. A 20-gauge 3.5-inch Tuohy needle was then advanced under fluoroscopic guidance towards the epidural space using a left paramedian approach. The epidural space [address] [address] PAIN MANAGEMENT CONSULTATION Name: CATRINA BATISTA Room #: REG [facility] Caleb#: [id number] Admission: 06/15/21 Attend Phys: Samir Wallace DO Discharge: Date of : 47 Report #: [id number] was identified using loss of resistance to air technique. After negative aspiration for heme or cerebrospinal fluid, a total of 1 mL of Omnipaque was injected. A lumbar epidurogram was confirmed using both AP and lateral fluoroscopy. After negative aspiration for heme or cerebrospinal fluid, 5 mL of a solution containing 2 mL 40 mg per mL 80 mg total triamcinolone along with 3 mL of lidocaine 1% was injected in increments. Contrast spread was noted posterior epidural space. The needle was then retracted approximately half way and needle tract flushed with 1 mL of 1% lidocaine. Needle was then removed. There were no apparent sensory or motor deficits in the lower extremity following the procedure. A sterile bandage was placed over the injection site. The heart rate, pulse, oximetry and blood pressure were continuously monitored after the procedure. There were no apparent complications. The patient tolerated the procedure well and was carefully escorted to the recovery room in stable condition. There were no apparent complications. After meeting discharge criteria, the patient was then discharged home. <ELECTRONICALLY SIGNED> By: Samir Wallace DO 06/21/21 [id number] Samir Wallace DO /nt
== END | disposition home or self-care (01) ==
LOC: PAIN 06:48
PROVIDERS: ATTEND Anesthesiology Pain Medicine
DX: M51.16 Intervertebral disc disorders with radiculopathy, lumbar region (principal); M48.061 Spinal stenosis, lumbar region without neurogenic claudication; M47.27 Other spondylosis with radiculopathy, lumbosacral region; M47.26 Other spondylosis with radiculopathy, lumbar region; M96.1 Postlaminectomy syndrome, not elsewhere classified; G89.29 Other chronic pain; F17.210 Nicotine dependence, cigarettes, uncomplicated; Z98.890 Other specified postprocedural states; Z79.899 Other long term (current) drug therapy; Z88.0 Allergy status to penicillin; Z88.8 Allergy status to other drugs, medicaments and biological substances

== ENCOUNTER → 2021-06-30 | Outpatient (CLI) | payer OTHER ==
[2021-06-30 11:14] LABS: ABSOLUTE NEUTROPHILS 6.7 thou/uL (1.4-8.2); BASOPHILS 0.3 % (0.0-2.0); EOSINOPHILS 1.4 % (0.0-3.0); HEMATOCRIT 40.1 % (37.0-47.0); HEMOGLOBIN 13.2 gm/dL (12.0-15.0); LYMPHOCYTES 18.3 % (24.0-44.0); MCH 31.2 pg (26.0-34.0); MCHC 32.9 g/dL (28.0-37.0); MCV 94.7 fL (80.0-100.0); MONOCYTES 7.8 % (1.0-8.0); PLATELET COUNT 368 thou/uL (150-400); POLYS 72.2 % (36.0-66.0); RBC 4.24 mil/uL (4.20-5.00); RDW 15.1 % (10.5-14.5); WBC 9.3 thou/uL (4.0-11.0)
[2021-06-30 11:27] LABS: ALBUMIN 3.4 g/dL (3.4-5.0); ANION GAP 9 mmol/L (7-16); BUN 18 mg/dL (7-18); CALCIUM 8.9 mg/dL (8.5-10.1); CHLORIDE 107 mmol/L (98-107); CHOLESTEROL 213 mg/dL (<200); CO2 26 mmol/L (21-32); CREATININE 0.9 mg/dL (0.6-1.0); GLUCOSE 89 mg/dL (74-106); HDL CHOLESTEROL 87 mg/dL (>40); LDL CHOLESTEROL 109 mg/dL (<100); POTASSIUM 3.9 mmol/L (3.5-5.1); SGOT 18 U/L (15-37); SGPT 27 U/L (30-65); SODIUM 142 mmol/L (136-145); TC:HDL 2.4 Ratio (Not establshd); TOTAL BILIRUBIN 0.4 mg/dL (0.2-1.0); TRIGLYCERIDE 89 mg/dL (<150); VLDL 18 mg/dL (<40)
== END ==
LOC: LAB 09:40
PROVIDERS: ATTEND Nurse Practitioner
DX: Z00.00 Encounter for general adult medical examination without abnormal findings (principal); I10 Essential (primary) hypertension; E03.8 Other specified hypothyroidism

== ENCOUNTER → 2021-07-06 | Outpatient (CLI) | payer OTHER ==
[~2021-07-06] VITALS: Ht 152.4 cm; Wt 77.1 kg
[~2021-07-06] MED LIST changes: +CYMBALTA30 MG PO; +NUCYNTA50 MG PO
--- NOTE | ~2021-07-06 | HPC ---
[address] [place] [address] PAIN MANAGEMENT CONSULTATION Name: CATRINA BATISTA Room #: REG ASHOK Wyatt#: [id number] Admission: 07/06/21 Attend Phys: Samir Wallace DO Discharge: Date of : 47 Report #: [id number] THIS REPORT FOR: cc: Yaneth Braun DNP, Mary E. DNP Johnson, James E. DO ~ cc: ADRIANA Marie DATE OF SERVICE: 07/06/2021 CHIEF COMPLAINT: Low back pain, bilateral lower extremity pain. HISTORY OF PRESENT ILLNESS: As you know, the patient is a very pleasant 75-year-old female suffering from chronic and progressive worsening lumbar radiculopathy. As you are aware, the patient has central canal stenosis at the L4-L5 level that was treated initially with surgical options, but did not alleviate the mechanical force that is present. She has had progressive worsening of lumbar radicular symptoms now radiating all the way down both legs. She indicates pain is at a level of 8/10. She has trialled conservative treatment. We did start the patient on gabapentin, which caused a significant pleuritis. She has been trialled on Lyrica, but stated she had side effects she could not tolerate. She returns today in followup visit to discuss options for treatment. She did receive benefit with the epidural injection at our last visit reporting 50% improvement in overall pain lasting until the 15th of this month where her symptoms reoccurred without inciting injury or trauma. She returns today in followup visit to begin the authorization process to undergo the third in the series of lumbar epidural injections in hopes of further improvement in symptoms and to discuss options if epidural injections are ineffective. ALLERGIES: PENICILLIN, CODEINE, HYDROCODONE. CURRENT MEDICATIONS: See chart. SOCIAL HISTORY: The patient smokes 1 pack tobacco per day, does for 40 years. Denies IV or illicit drug use. Denies any chronic alcohol use. She is working, not receiving workmen's compensation, unaccompanied today. IMAGING: No new imaging available. PHYSICAL EXAMINATION: VITAL SIGNS: Blood pressure 160/82, pulse 62, respiratory rate 16 and unlabored. The patient 98% on room air. Height 5 feet tall, weight 170 pounds, BMI calculated 33.2. GENERAL: Well-developed, well-nourished, well-hydrated 75-year-old female appearing stated age, pain is rated today at 8/10. HEENT: Normocephalic, atraumatic. Pupils are round and [place] [address] PAIN MANAGEMENT CONSULTATION Name: CATRINA BATISTA Room #: REG [facility].#: [id number] Admission: 07/06/21 Attend Phys: Samir Wallace DO Discharge: Date of : 47 Report #: [id number] wearing a mask in compliance with COVID-19 regulations. EXTREMITIES: Show no clubbing, no cyanosis, no edema. MUSCULOSKELETAL: Lower extremity strength is symmetrical, 5/5. Giveaway strength is noted with hip flexion, knee extension on the left due to pain generation. Seated straight leg raising positive. Supine straight leg raising positive. Gait is antalgic favoring left lower extremity over right. Ankle clonus negative. Babinski is negative. Lumbar provocation testing is met with increasing axial back pain with rotation and lateral flexion. ASSESSMENT: 1. Symptomatic lumbar radiculopathy. 2. 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 3. Severe central canal stenosis of lumbar spine. 4. Severe neural foraminal stenosis of lumbar spine. 5. Lumbosacral spondylosis with radiculopathy. 6. Displacement of lumbar intervertebral disk with radiculopathy. 7. Facet arthropathy, lumbar spine. 8. Failed lumbar spine surgery. 9. Chronic intractable pain. PLAN: 1. The patient returns today in followup visit stating acute onset of pain that began the 15th of this month. She did well with the previous epidural injections noticing 50% improvement in overall pain, but unfortunately symptoms recurred acutely. She denies injury or trauma. She returns today to begin the process of authorization for the third in the series of epidural injections. It does appear based on our records that she is requiring an epidural injection every month to address issues. This is the final injection. We have until October of 2021. We are hopeful the patient will see benefit with this next in the series of epidural injections for long-term. We did discuss the following options if the symptoms do not improve. The patient will await authorization for the epidural injection proposed at our next visit. 2. The patient discussed the options for treatment. I do feel that surgical options may be necessary as she has significant side effects to medications today including Lyrica and gabapentin. She also cannot take hydrocodone because of a reported allergic reaction. She is limited in what she can take from a medication standpoint. We will make adjustments in medications today in hopes of improving pain and that with a combination of epidural injection may be enough to promote improvement in symptoms. If this does not, surgical options would have to be entertained. The patient is agreeable with this plan. 3. We will begin the process of authorization for the patient to undergo the third in the series of lumbar epidural injections. I am hopeful that this authorization will occur quickly and we can see the patient back to undergo the procedure. 4. The patient will be started on Nucynta 50 mg dose 1 tab p.o. t.i.d. p.r.n. pain. I have given the patient #90 tablets. The patient was advised to watch [address] [place] [address] PAIN MANAGEMENT CONSULTATION Name: CATRINA BATISTA Room #: REG ASHOK Wyatt#: [id number] Admission: 07/06/21 Attend Phys: Samir Wallace DO Discharge: Date of : 47 Report #: [id number] for side effects of sleepiness, disorientation, confusion, mental slowing or pruritus with the medication. If she notes any side effects, discontinue immediately. A prescription of #90 tablets, was sent to local pharmacy via e-scribe. 5. The patient will be started on Cymbalta 30 mg dose 1 tab p.o. at bedtime for 7 nights, then increase to 2 tabs p.o. at bedtime for 7 nights. If no improvement in symptoms, no side effects of sleepiness, disorientation, confusion, then increase to 30 mg morning and 60 mg at night for 7 days. Again, if no improvement in symptoms, no side effects, then increase to 60 mg b.i.d. The patient was given #120 tablets sent to her local pharmacy. 6. We plan to see the patient back in followup visit once we have achieved authorization for the patient to undergo lumbar epidural injection. We will discuss efficacy of medication at that visit. By: [id number] Samir Wallace DO /tony
[2021-07-06 08:28] VITALS: BP 160/82
--- NOTE | 2021-07-06 08:33 | NUR ---
Pain Clinic Assessment: 1. History of Osteoarthritis: Not Applicable History of Rheumatoid Arthritis: Not Applicable 2. Height: 5 ft. 0 in. 152.4 cm. Weight: 170.0 lb. oz. 77.112 kg. Patient's BMI: 33.2 3. Vital Signs: BP: 160/82 Pulse: 62 Resp: 16 Temp: 02 Sat: 98 ECG Mon: 4. Pain Intensity: 8 5. Fall Risk: Dizziness: Y Needs help standing or walking: N Fallen in the last 3 months: N Fall risk comments: 6. Patient on Blood Thinner: None 7. History of Hypertension: Y 8. Opioid Therapy greater than 6 weeks: N Opiate Contract Signed: 9. Risk Assessment Tool Provided: 0-LOW 10. Functional Assessment Tool: 11. Recreational Drug Use: Never Drug Type: Tobacco Use: Former Smoker Tobacco Type: Amount or Packs/day: How Many Years: Alcohol Use: No Frequency: Quant:
== END ==
LOC: PAIN 07:57
PROVIDERS: ATTEND Anesthesiology Pain Medicine
DX: M47.26 Other spondylosis with radiculopathy, lumbar region (principal); M48.061 Spinal stenosis, lumbar region without neurogenic claudication; M51.16 Intervertebral disc disorders with radiculopathy, lumbar region; G89.29 Other chronic pain; Z98.890 Other specified postprocedural states; Z88.5 Allergy status to narcotic agent

== ENCOUNTER → 2021-10-26 | Outpatient (CLI) | payer OTHER ==
[~2021-10-26] MED LIST changes: +CYMBALTA60 MG PO; +LEVOTHYROXINE50 MCG PO
[2021-10-26 10:14] LABS: HEMATOCRIT 39.1 % (37.0-47.0); HEMOGLOBIN 12.9 gm/dL (12.0-15.0); MCH 30.7 pg (26.0-34.0); MCHC 33.1 g/dL (28.0-37.0); MCV 92.8 fL (80.0-100.0); RBC 4.22 mil/uL (4.20-5.00); RDW 13.5 % (10.5-14.5); WBC 5.1 thou/uL (4.0-11.0)
[2021-10-26 10:19] LABS: URINE BILIRUBIN 3+ (Negative); URINE BLOOD NEGATIVE (Negative); URINE CLARITY CLEAR; URINE COLOR YELLOW; URINE GLUCOSE-RANDOM* NEGATIVE (Negative); URINE KETONES NEGATIVE (Negative); URINE LEUKOCYTES-REFLEX NEGATIVE (Negative); URINE NITRITE-REFLEX NEGATIVE (Negative); URINE PROTEIN (DIPSTICK) NEGATIVE (Negative); URINE UROBILINOGEN 0.2 E.U./dl (0.2-1.0)
[2021-10-26 10:24] LABS: ICTOTEST (BILI CONFIRMATORY) Positive (Negative)
[2021-10-26 10:25] LABS: APTT 27.1 Seconds (24.5-32.8); PROTIME 10.9 Seconds (10.5-12.1)
[2021-10-26 10:26] LABS: ALBUMIN 3.4 g/dL (3.4-5.0); CALCIUM 8.6 mg/dL (8.5-10.1); CREATININE 0.8 mg/dL (0.6-1.0); POTASSIUM 4.7 mmol/L (3.5-5.1); TOTAL BILIRUBIN 0.5 mg/dL (0.2-1.0); TOTAL PROTEIN 6.4 g/dL (6.4-8.2)
--- NOTE | 2021-10-27 08:33 | EKG ---
[place] [address] [facility] [place] [address] ELECTROCARDIOGRAM REPORT Name: CATRINA BATISTA Room #: REG [facility]#: [id number] Admission: 10/26/21 Attend Phys: Ike Christianson, Discharge: Date of : 49 Report #: [id number] [facility] Test Date: 2021-10-26 Test Time: 10:02:40 Pat Name: CATRINA BATISTA Department: Room: Gender: F Cna Hha: Vicki HERNANDES : 1945 Requested By: Ike Christianson Order Number: [id number] MD: Marcial Fernández Measurements Intervals [place] Rate: 55 P: 25 WA: 205 QRS: -12 QRSD: 92 T: 17 QT: 427 QTc: 409 Interpretive Statements Sinus bradycardia with first-degree AV block Otherwise no significant abnormality Compared to ECG 11/15/2020 09:48:26 Right bundle-branch block no longer present Electronically Signed On 10-27-2021 8:33:25 WEB SITE MANAGER by Marcial Fernández [email or web address] <ELECTRONICALLY SIGNED> By: Marcial Fernández MD, [facility] 10/27/2133 1002 1002 Marcial Fernández MD, FAC /EPI
== END ==
LOC: PAC 08:33
PROVIDERS: ATTEND Specialist
DX: I44.0 Atrioventricular block, first degree (principal); R00.1 Bradycardia, unspecified; M43.16 Spondylolisthesis, lumbar region; I10 Essential (primary) hypertension

== ENCOUNTER → 2021-10-26 | Outpatient (CLI) | payer OTHER | LOC: CAT → RAD 14:00 → CAT 14:00 | PROVIDERS: ATTEND Specialist | DX: M47.816 Spondylosis without myelopathy or radiculopathy, lumbar region (principal); M48.061 Spinal stenosis, lumbar region without neurogenic claudication; M43.16 Spondylolisthesis, lumbar region ==

== ENCOUNTER → 2021-10-28 | Outpatient (CLI) | payer OTHER | LOC: LAB 10:49 | PROVIDERS: ATTEND Student in an Organized Health Care Education/Training Program | DX: Z20.822 Contact with and (suspected) exposure to COVID-19 (principal) ==

== ENCOUNTER 2021-10-31 06:34 | Inpatient (IN) | payer OTHER ==
[~2021-10-31] VITALS: Ht 152.4 cm; Wt 71.2 kg
[2021-10-31 07:48] VITALS: BP 167/82
[2021-10-31 13:30] VITALS: BP 149/79
--- NOTE | 2021-10-31 14:29 | NUR ---
ASSUMED PT CARE FROM PACU AT 1323. PT IS ALERT & ORIENTED X4. PT HAS IV SITE ON R HAND WITH VELVET CUTTER MORPHINE 1MG Q6 MINS WITH A MAX 10MG/HR. PT IS ON 1L NC 02 FOR COMFORT. EDUCATED PT HOW TO USE VELVET CUTTER PUMP. PT HAS BILATERAL [employer] KNEE HIGH, KENNEDY CATH IN PLACE, SHANNAN DRAIN, AND ANTIMICROBIAL DRESSING ON BACK. FINISHED ADMISSION. LAST BM WAS YESTERDAY. PT FAMILY AT THE BEDSIDE. CALLED CONSULT HOSPITALIST THIS AFTERNOON. WILL CONTINUE TO MONITOR PT. FOLLOW POC.
[2021-10-31 19:46] VITALS: BP 150/80
[2021-11-01 04:35] VITALS: BP 128/60
[2021-11-01 05:20] LABS: BASOPHILS 0.3 % (0.0-2.0); HEMOGLOBIN 11.6 gm/dL (12.0-15.0); LYMPHOCYTES 12.9 % (24.0-44.0); MCH 31.2 pg (26.0-34.0); MCHC 33.2 g/dL (28.0-37.0); MCV 93.9 fL (80.0-100.0); MONOCYTES 10.7 % (1.0-8.0); PLATELET COUNT 246 thou/uL (150-400); POLYS 76.1 % (36.0-66.0); RBC 3.73 mil/uL (4.20-5.00); RDW 13.7 % (10.5-14.5); WBC 10.5 thou/uL (4.0-11.0)
[2021-11-01 05:25] LABS: CALCIUM 8.4 mg/dL (8.5-10.1); CREATININE 0.7 mg/dL (0.6-1.0); MAGNESIUM 1.7 mg/dL (1.8-2.4)
--- NOTE | 2021-11-01 06:02 | NUR ---
RECEIVED CARE OF THIS PATIENT AT 1900. PATIENT ALERT AND ORIENTEDE X4. REMAINS IN BEDREST. 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 HAS SHANNAN IN BACK. KENNEDY PATENT YELLOW URINE. SLEPT OFF AND ON DURING NIGHT.
[2021-11-01 07:11] VITALS: BP 146/71
[2021-11-01 08:43] LABS: FOLIC ACID 14.1 ng/mL (8.6-58.9)
--- NOTE | 2021-11-01 10:16 | NUR ---
ASSUMED PT CARE THIS AM. PT IS ALERT & ORIENTED X4 BUT ANXIOUS AT TIMES. PT HAS IV SITE ON R HAND RUNNING NS @30ML/HR. INFUSED IV MAGNESIUM PER ORDERED. PT HAS KENNEDY CATH IN PLACE AND SHANNAN DRAIN. DISCONTINUED MORPHINE IN FLIGHT REFUELING OPERATOR PUMP PER DR ALONZO PA THIS AM. ORDERED BENARYL AND OXYCODONE PER PA. PT HAS BILATERAL [employer] KNEE HIGH. PHYSICAL THERAPY AND OCCUPATIONAL THERAPY WAS WORKING WITH PT THIS AM. PT IS CURRENTLY SITTING ON THE CHAIR WATCHING TV. WILL CONTINUE TO MONITOR PT. FOLLOW POC.
[2021-11-01 14:30] VITALS: BP 124/51
--- NOTE | 2021-11-01 15:30 | NUR ---
Unit cm met with the pt this morning. Cm role introduced. 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 She is s/p lumbar fusion and hoping to id to outpt f/u. She has a cane at home and does not want a rwalker unless therapy recommends it. Her pcp office is Dr Gan/Yaneth Braun [facility]. Will follow along should she need a rwalker or hh at id.
[2021-11-01 19:13] VITALS: BP 134/68
--- NOTE | 2021-11-01 22:11 | NUR ---
ASSUMED CARE OF PT AT 1915. PT IS A&OX4. IS ON ROOM AIR. DENIES PAIN AT THIS TIME IN BACK. DENIES N/T, N/V. IS STABLE. ANGELINA BENOIT C/D/I. BACK PRECAUTIONS CONTINUED THIS SHIFT. PT REFUSES TO CALL FOR ASSISTANCE IN & OUT OF THE BED. DOES NOT WANT THE BED ALARM ON D/T URGENCY. INSIST ON USING THE BSC. REQUESTED THAT IT STAYS NEXT TO BED. EDUCATION PROVIDED. PT VOICES UNDERSTANDING, BUT INSIST ON DOING IT HER WAY. HOURLY ROUNDING CONTINUED. LABS & VITALS REVIEWED. PT IS CURRENTLY IN ROOM, IN BED. CALL LIGHT WITHIN REACH. WILL CONTINUE TO MONITOR.
[2021-11-02 07:43] VITALS: BP 135/63
--- NOTE | 2021-11-02 10:05 | NUR ---
ASSUMED PT CARE THIS AM. PT IS ALERT & ORIENTED X4 BUT ANXIOUS AT TIMES. PT IS UP WITH ASSIST TO THE BEDSIDE COMMODE. EMPTY SHANNAN DRAIN THIS AM AND INFORMED PA ABOUT SHANNAN DRAIN OUTPUT LAST NIGHT. AWAITING FOR PHARMACY ABOUT PO MORPHINE. PT TOLERATED DIET AND MEDICATION WELL. PT DAUGHTER WAS AT THE BEDSIDE. WILL CONTINUE TO MONITOR PT. FOLLOW POC.
--- NOTE | 2021-11-02 11:43 | NUR ---
CM notified that she will need fww at [facility]. [facility] following for home health needs. Verónica has voiced she really wants to go to [facility] before going home. Will cont following as needed.
--- NOTE | 2021-11-02 14:49 | NUR ---
provider plus, and mer to not take [facility] insurance. Referral sent to adis to check benefits for f[facility] at [place].
[2021-11-02 15:46] VITALS: BP 177/69
[2021-11-02 20:34] VITALS: BP 120/55
--- NOTE | 2021-11-03 02:43 | NUR ---
ASSUMED CARE OF PT BETWEEN [id number]. PT IS A/O X4 AND IS UP WITH SBA WITH WALKER AND GB TO THE BSC. VSS. AFEBRILE. MEDICATIONS GIVEN PER MAR. FALL PRECAUTIONS IN PLACE, CALL LIGHT IS WITHIN REACH. REPORT GIVEN TO ONCOMING NURSE.
[2021-11-03 08:37] VITALS: BP 184/81
[2021-11-03 12:42] VITALS: BP 139/66
--- NOTE | 2021-11-03 14:35 | NUR ---
Assumed care of pt at 1330. Pt a&ox4. Pain controlled. Dressing c/d/i. J.P. drain in place. RA. SBA. Call light within reach. Will continue to monitor.
[2021-11-03 15:58] VITALS: BP 126/65
[2021-11-03 20:25] VITALS: BP 120/47
--- NOTE | 2021-11-04 04:14 | NUR ---
patient aox4 makes needs known. pain controlled this shift. patient is continent and uses bedside commode. patient has a back dressing with a kiran drain. dressing is c/d/i. fall precaution in place. patient in bed asleep at this time breathing regular and unlaboured.
[2021-11-04 10:25] LABS: HEMATOCRIT 37.7 % (37.0-47.0); HEMOGLOBIN 12.2 gm/dL (12.0-15.0); MCH 30.4 pg (26.0-34.0); MCHC 32.4 g/dL (28.0-37.0); MCV 93.8 fL (80.0-100.0); RBC 4.02 mil/uL (4.20-5.00); RDW 13.7 % (10.5-14.5); WBC 7.8 thou/uL (4.0-11.0)
--- NOTE | 2021-11-04 14:13 | NUR ---
Discussed during los with the attending physician, taylor solano on 10/1821 home with francoise pavon and earlew from [facility], which was delivered today.
[2021-11-04 14:14] VITALS: BP 120/47
--- NOTE | 2021-11-04 18:07 | NUR ---
Pt A & O x4. Pt VS stable. Pt SHANNAN drain removed from back this AM. Pt is up ad karen to bedside commode in room . Pt received medications as ordered and also received PRN medications. Pt worked with PT/Ot this shift. PT is able to make needs known
[2021-11-04 20:13] VITALS: BP 117/40
--- NOTE | 2021-11-05 06:34 | NUR ---
ASSUMED CARE AT 1900, PT REPORTS PAIN, MEDICATION ADMINISTERED PER REQUEST, COPLIANT WITH TX, NO ADVERSE REACTION NOTED, CALL LIGHT AND PERSONAL BELONGING WITHIN REACH, SLEPT THROUGH THE NIGHT, WILL CONTINUE TO MONITOR.
[2021-11-05 07:43] VITALS: BP 111/78
[2021-11-05 10:48] LABS: ALBUMIN 2.7 g/dL (3.4-5.0); CALCIUM 8.6 mg/dL (8.5-10.1); CREATININE 0.7 mg/dL (0.6-1.0); MAGNESIUM 1.9 mg/dL (1.8-2.4); PHOSPHORUS 3.9 mg/dL (2.5-4.9); POTASSIUM 4.2 mmol/L (3.5-5.1); TOTAL BILIRUBIN 0.3 mg/dL (0.2-1.0); TOTAL PROTEIN 6.1 g/dL (6.4-8.2)
[2021-11-05 11:43] VITALS: BP 120/47
--- NOTE | 2021-11-05 13:43 | NUR ---
ASSUMED PT CARE THIS AM. PT IS UP AD CB WITH WALKER. PT HAS [facility]IL[facility]AL [facility]IGH [facility], SCD. CHANGED WOUND DRESSING AND SENT CULTURE THIS AM PER DR ORDERED AND INFORMED PAIGE MONET. PT IS ON ROOM AIR. PT REFUSED MIRALAX THIS AM AND GIVEN SCHEDULED MEDICATIONS. PT TOLERATED DIET WELL. AWAITING FOR DC ORDER. WILL CONTINUE TO MONITOR PT. FOLLOW POC.
[2021-11-05] MEDS ORDERED: TYLENOL325 MG PO (14:22)
[2021-11-05] MEDS ORDERED: FOLIC ACID1 MG PO (14:22)
[2021-11-05] MEDS ORDERED: METHOCARBAMOL750 MG PO (14:23)
== END 2021-11-05 15:46 | disposition home or self-care (01) | DRG 460 ==
LOC: PRE → TBA 06:34 → 4S 06:34 → OR 09:01 → EDSTATUS 09:23 → PRE 11:48 → 4S 13:08
PROVIDERS: Hospitalist; Internal Medicine; Nurse Practitioner; ADMIT Specialist; ATTEND Specialist
PROC: 01NB0ZZ Release Lumbar Nerve, Open Approach (ICD-10-PCS; principal; 2021-10-31)
PROC: 00NY0ZZ Release Lumbar Spinal Cord, Open Approach (ICD-10-PCS; principal; 2021-10-31)
PROC: 0SG10A0 Fusion of 2 or more Lumbar Vertebral Joints with Interbody Fusion Device, Anterior Approach, Anterior Column, Open Approach (ICD-10-PCS; principal; 2021-10-31)
DX: M48.061 Spinal stenosis, lumbar region without neurogenic claudication (principal); M53.2X6 Spinal instabilities, lumbar region; I10 Essential (primary) hypertension; F32.9 Major depressive disorder, single episode, unspecified; F41.9 Anxiety disorder, unspecified; J45.909 Unspecified asthma, uncomplicated; Z96.651 Presence of right artificial knee joint; E89.0 Postprocedural hypothyroidism; G89.29 Other chronic pain; M54.9 Dorsalgia, unspecified; M54.16 Radiculopathy, lumbar region; Z88.0 Allergy status to penicillin; Z88.8 Allergy status to other drugs, medicaments and biological substances; Z88.6 Allergy status to analgesic agent; Z91.040 Latex allergy status; Z98.42 Cataract extraction status, left eye; Z98.41 Cataract extraction status, right eye; Z90.49 Acquired absence of other specified parts of digestive tract; Z87.891 Personal history of nicotine dependence
CPT/HCPCS: 10102; 50010; 50101; 50331; 50402; 50455; 50850; 50923; 51878; 52258; 56525; 56528; 56532; 57103; 58457; 58544; 58545; 58546; 58567; 58569; 58573; 58727; 58745; 58759; 58784; 58786; 62110; 62900; 70005

== ENCOUNTER → 2022-01-10 | Outpatient (CLI) | payer OTHER ==
[~2022-01-10] MED LIST changes: +FOLIC ACID1 MG PO; +METHOCARBAMOL750 MG PO; +TYLENOL325 MG PO
== END ==
LOC: RAD 09:49
PROVIDERS: ATTEND Nurse Practitioner
DX: M17.11 Unilateral primary osteoarthritis, right knee (principal); M25.461 Effusion, right knee; Z96.651 Presence of right artificial knee joint